=== PATIENT | female | born 1955 | race Caucasian/White ===

== ENCOUNTER 2021-10-09 14:17 | Outpatient (REF) | payer MEDICARE, SELFPAY ==
--- NOTE | ~2021-10-09 | MM_ITS ---
EXAMINATION: MM SCREENING DIGITAL BREAST TOMOSYNTHESIS, BILATERAL CLINICAL INFORMATION: Screening. Asymptomatic. The lifetime risk of breast cancer based on the Tyrer-Cuzick Model is 4.6%. COMPARISON: Mammography: 05/08/2019 and studies dating back to 03/17/2010 TECHNIQUE: Digital breast tomosynthesis is performed in both the craniocaudal and mediolateral oblique views along with computer-aided detection (CAD). Synthesized 2D images are generated from the tomosynthesis. FINDINGS: The breasts are heterogeneously dense, which may obscure small masses (ACR BI-RADS breast composition Category c). About the deep upper outer aspect of the left breast there is an ill-defined 5 mm density with a few overlying calcifications for which spot magnification compression view is recommended. This lies approximately 8 cm from the nipple. There is also a grouping of calcifications which appears to be increasing about the superior lateral aspect of the left breast for which spot magnification view is recommended. This lies approximately 7 cm from the nipple. No right breast abnormality appreciated. MM/MM tomosynthesis screening BI IMPRESSION: Left breast density and calcifications for further evaluation as described. ASSESSMENT: BI-RADS 0: Incomplete - Need Additional Imaging Evaluation RECOMMENDATION: 1. Additional views of the left breast. 2. Targeted ultrasound if warranted after review of the additional views. 3. Radiology department staff will contact the patient for additional imaging. This patient's information was entered into a reminder system with a target due date for their next mammogram.
== END 2021-10-09 14:18 | disposition home or self-care (01) ==
LOC: HO.MAMMO 14:17
PROVIDERS: Visit Provider Internal Medicine Geriatric Medicine
DX: Z12.31 Encounter for screening mammogram for malignant neoplasm of breast (principal)
CPT/HCPCS: 77063; 77067

== ENCOUNTER 2021-10-17 10:41 | Outpatient (REF) | payer MEDICARE, SELFPAY ==
--- NOTE | ~2021-10-17 | MM_ITS ---
EXAMINATION: MM DIAGNOSTIC DIGITAL BREAST TOMOSYNTHESIS, LEFT CLINICAL INFORMATION: Recall from screening for 2 findings, asymmetric density upper left breast and tightly grouped calcifications upper outer left breast. COMPARISON: Mammography: 10/09/2021 and prior studies dating back to 07/25/2012 TECHNIQUE: Digital breast tomosynthesis is performed. 2D images are generated from the tomosynthesis. The following views are obtained: Magnification CC, magnification ML x2. FINDINGS: There are scattered areas of fibroglandular density (ACR BI-RADS breast composition Category b). Additional views show no developing density or interval mass or architectural abnormality. The fibroglandular density for recall is stable since 2012. There are tightly grouped punctate calcifications upper outer left breast in area of only 3 mm span with benign appearance. These will be reassessed again in 6 months to include magnification views. Results are discussed with the patient at time of visit. MM/MM tomosynthesis added views L IMPRESSION: 1. Asymmetric density for recall is less conspicuous and stable since 2011. No developing density. 2. Probable benign tightly grouped punctate calcifications upper outer left breast. ASSESSMENT: BI-RADS 3: Probably Benign RECOMMENDATION: Diagnostic left mammography in 6 months. This patient's information was entered into a reminder system with a target due date for their next mammogram.
== END 2021-10-17 10:42 | disposition home or self-care (01) ==
LOC: HO.MAMMO 10:41
PROVIDERS: Visit Provider Internal Medicine Geriatric Medicine
DX: R92.8 Other abnormal and inconclusive findings on diagnostic imaging of breast (principal)
CPT/HCPCS: 77061; 77065

== ENCOUNTER 2022-04-20 10:50 | Outpatient (REF) | payer MEDICARE, SELFPAY ==
--- NOTE | ~2022-04-20 | MM_ITS ---
EXAMINATION: MM DIAGNOSTIC DIGITAL BREAST TOMOSYNTHESIS, LEFT CLINICAL INFORMATION: Short interval six-month follow-up probable benign tightly grouped punctate calcifications mid upper outer left breast. TC score 4%. COMPARISON: Mammography: 10/17/2021, 10/09/2021 (BI-RADS 0), prior studies dating back to 07/25/2012. TECHNIQUE: Digital breast tomosynthesis is performed in both the craniocaudal and mediolateral oblique views along with computer-aided detection (CAD). Synthesized 2D images are generated from the tomosynthesis. Additional magnification views left breast are obtained in the CC and ML x2 projections. FINDINGS: There are scattered areas of fibroglandular density (ACR BI-RADS breast composition Category b). Parenchymal pattern is similar to prior studies. There is no developing density or interval mass or architectural abnormality. There is a chronic asymmetric density mid superior left breast on MLO view similar to prior exams dating back to 2011. The tightly grouped calcifications mid upper outer left breast are stable on the additional magnification views. No increasing calcifications or ductal distribution. These will be reassessed again at time of annual bilateral mammography, due in 6 months. Results are provided to the patient at time of visit by the technologist. MM/MM tomosynthesis diagnostic LT IMPRESSION: -Probable benign tightly grouped calcifications mid upper outer left breast, stable from prior diagnostic exam. ASSESSMENT: BI-RADS 3: Probably Benign RECOMMENDATION: Diagnostic mammography at time of annual bilateral exam, due in 6 months. This patient's information was entered into a reminder system with a target due date for their next mammogram.
== END 2022-04-20 10:51 | disposition home or self-care (01) ==
LOC: HO.MAMMO 10:50
PROVIDERS: PCP Internal Medicine Geriatric Medicine; Visit Provider Internal Medicine Geriatric Medicine
DX: R92.8 Other abnormal and inconclusive findings on diagnostic imaging of breast (principal)
CPT/HCPCS: 77061; 77065

== ENCOUNTER 2022-10-29 12:48 | Outpatient (REF) | payer MEDICARE, SELFPAY ==
--- NOTE | ~2022-10-29 | MM_ITS ---
EXAMINATION: MM DIAGNOSTIC DIGITAL BREAST TOMOSYNTHESIS, BILATERAL CLINICAL INFORMATION: Due for yearly. Also follow-up probable benign tightly grouped calcifications mid upper outer left breast. TC score 4%. COMPARISON: Mammography: 04/20/2022, 10/17/2021, 10/09/2021 (BI-RADS 0), 05/08/2019, 02/28/2018 TECHNIQUE: Digital breast tomosynthesis is performed in both the craniocaudal and mediolateral oblique views along with computer-aided detection (CAD). Synthesized 2D images are generated from the tomosynthesis. Magnification left CC, magnification left ML, magnification right CC x2, magnification right ML. FINDINGS: There are scattered areas of fibroglandular density (ACR BI-RADS breast composition Category b). Parenchymal pattern is similar to prior studies and there is no developing density or interval mass or architectural abnormality. The axilla and skin contours are unremarkable. Magnification views left breast show stable calcifications upper outer quadrant similar to prior diagnostic exams. Calcifications will be reassessed again at next diagnostic mammography. Right breast standard views suggest questionable increased calcifications central and upper outer quadrant. Additional magnification views right breast confirm numerous punctate uniform round calcifications and coarser calcifications in the posterior upper outer right breast. There are calcifications in these areas on prior studies but no prior magnification views to allow for confirmation of stability. Therefore, right breast will be reassessed again in 6 months to include magnification views. Results are provided to the patient at time of visit by the technologist. MM/MM tomosynthesis diagnostic BI IMPRESSION: Left: -Calcifications upper outer quadrant are stable from prior diagnostic exam. Right: -Regional calcifications central and upper outer quadrant. ASSESSMENT: BI-RADS 3: Probably Benign RECOMMENDATION: Bilateral diagnostic mammography in 6 months. This patient's information was entered into a reminder system with a target due date for their next mammogram.
== END 2022-10-29 12:49 | disposition home or self-care (01) ==
LOC: HO.MAMMO 12:48
PROVIDERS: PCP Internal Medicine Geriatric Medicine; Visit Provider Internal Medicine Geriatric Medicine
DX: R92.1 Mammographic calcification found on diagnostic imaging of breast (principal)
CPT/HCPCS: 77062; 77066

== ENCOUNTER 2023-04-30 12:45 | Outpatient (REF) | payer MEDICARE, SELFPAY ==
--- NOTE | ~2023-04-30 | MM_ITS ---
EXAMINATION: MM DIAGNOSTIC DIGITAL BREAST TOMOSYNTHESIS, BILATERAL CLINICAL INFORMATION: Short interval 6-month follow-up probable benign calcifications bilateral breasts. The lifetime risk of breast cancer based on the Tyrer-Cuzick Model is 4%. COMPARISON: Mammography: 10/29/2022 (new diagnostic for right), 04/20/2022, 10/17/2021, 10/09/2021 (BI-RADS 0 4 left), 05/08/2019 TECHNIQUE: Digital breast tomosynthesis is performed in both the craniocaudal and mediolateral oblique views along with computer-aided detection (CAD). Synthesized 2D images are generated from the tomosynthesis. Additional views are obtained: Exaggerated right CC, bilateral magnification CC, bilateral magnification ML. FINDINGS: There are scattered areas of fibroglandular density (ACR BI-RADS breast composition Category b). Breast tissue composition borders on heterogeneously dense. Parenchymal pattern is similar to prior exams and there is no significant mass and no architectural abnormality. The axilla and skin contours are unremarkable. Right breast calcifications for follow-up central breast and posterior upper outer breast are similar to prior diagnostic exam. There are no increasing calcifications or pleomorphic types. Calcifications will be reassessed again in 6 months at time of annual bilateral mammography. Left breast calcifications for follow-up posterior upper outer breast are read 2 groups, slightly increased in number and tightly grouped and coarse or suggesting foci of fibroadenomatous change. They will be reassessed again at time of annual bilateral mammography, due in 6 months. Results are provided to the patient at time of visit by the technologist. MM/MM tomosynthesis diagnostic BI IMPRESSION: -No significant changes from prior exam. -Probable benign fibroadenomatous calcifications 2 groups upper outer left breast. -Probable benign regional calcifications central and upper outer right breast. ASSESSMENT: BI-RADS 3: Probably Benign RECOMMENDATION: Diagnostic bilateral mammography in 6 months. This patient's information was entered into a reminder system with a target due date for their next mammogram.
== END 2023-04-30 12:46 | disposition home or self-care (01) ==
LOC: HO.MAMMO 12:45
PROVIDERS: PCP Internal Medicine Geriatric Medicine; Visit Provider Internal Medicine Geriatric Medicine
DX: R92.1 Mammographic calcification found on diagnostic imaging of breast (principal)
CPT/HCPCS: 77062; 77066